=== PATIENT | male | born 1995 | race Caucasian/White ===

== ENCOUNTER 2022-03-07 18:47 | Inpatient (IN) | payer MEDICARE, OTHER ==
[~2022-03-07 18:47] MED LIST: LACTATED RINGERS 1,000 ML IV ONE
--- NOTE | 2022-03-07 20:21 | XR ---
EXAMINATION TYPE: XR KUB DATE OF EXAM: 03/07/2022 COMPARISON: NONE HISTORY: Right lower quadrant pain TECHNIQUE: 2 view FINDINGS: There is no sign of intestinal obstruction or pneumoperitoneum. Fecal pattern is normal. Madina ng bases are clear. No calcifications seen over the kidneys. There is a 12 mm calcification over the pelvis on the right side that could be large appendicolith. IMPRESSION: Possible large appendicolith. Nonacute bowel gas pattern.
[2022-03-07 20:24] LABS: Appearance,Urine Clear (Clear); Bilirubin,Urine Negative (Negative); Blood,Urine Negative (Negative); Color,Urine Yellow; Glucose,Urine (UA) Negative (Negative); Ketones,Urine 2+ (Negative); Leukocyte Esterase,Urine Negative (Negative); Nitrite,Urine Negative (Negative); Protein,Urine Trace (Negative); Specific Gravity,Urine 1.013 (1.001-1.035); Urobilinogen,Urine <2.0 mg/dL (<2.0)
[2022-03-07 20:30] LABS: Basophils # (A) 0.1 k/uL (0-0.2); Basophils % (A) 0 %; Eosinophils # (A) 0.1 k/uL (0-0.7); Eosinophils % (A) 0 %; HCT 40.8 % (39.0-53.0); HGB 14.4 gm/dL (13.0-17.5); Lymphocytes # (A) 1.3 k/uL (1.0-4.8); Lymphocytes % (A) 5 %; MCHC 35.3 g/dL (31.0-37.0); MCV 79.4 fL (80.0-100.0); Mean Platelet Volume 8.3; Monocytes # (A) 0.9 k/uL (0-1.0); Monocytes % (A) 4 %; Neutrophils # (A) 22.5 k/uL (1.3-7.7); Neutrophils % (A) 90 %; Platelet Count 155 k/uL (150-450); RBC 5.14 m/uL (4.30-5.90); RDW 12.8 % (11.5-15.5)
[2022-03-07 20:36] LABS: ALT 19 U/L (4-49); AST 17 U/L (17-59); African American GFR (CKD) >90 (>60 ml/min/1.73 sqM); Albumin 4.8 g/dL (3.5-5.0); Alkaline Phosphatase 75 U/L (38-126); Amylase 44 U/L (30-110); Anion Gap 14 mmol/L; Blood Urea Nitrogen 9 mg/dL (9-20); Calcium 9.5 mg/dL (8.4-10.2); Carbon Dioxide 22 mmol/L (22-30); Chloride 101 mmol/L (98-107); Glucose 111 mg/dL (74-99); Lipase 42 U/L (23-300); Non-African American GFR(CKD) >90 (>60 ml/min/1.73 sqM); Sodium 137 mmol/L (137-145); Total Bilirubin 2.6 mg/dL (0.2-1.3); Total Protein 7.6 g/dL (6.3-8.2)
[2022-03-07] MEDS ORDERED: PIPERACILLIN-TAZOBACTAM 3.375 GM in SODIUM CHLORIDE 0.9% 100 ML IVPB STA (21:28)
[2022-03-07] MEDS ORDERED: ONDANSETRON 4 MG/2 ML VIAL IVP STA (21:28)
[2022-03-07] MEDS ORDERED: MORPHINE SULFATE 4 MG/ML SYRINGE IVP STA (21:28)
--- NOTE | 2022-03-07 21:38 | CT ---
EXAMINATION TYPE: CT abdomen pelvis w con DATE OF EXAM: 03/07/2022 COMPARISON: None HISTORY: lower abdominal pain and vomiting CT DLP: 1026.3 mGycm Automated exposure control for dose reduction was used. CONTRAST: Performed with IV Contrast, patient injected with 100 mL of Isovue 300. Images obtained from the diaphragm to the floor the pelvis with the IV contrast. The lung bases are clear. No pleural effusion. Heart size is normal. No pericardial effusion. Liver spleen pancreas stomach gallbladder appear intact. The bile duct are nondilated. There is no adrenal mass. Kidneys show satisfactory contrast opacification. No hydronephrosis. Ureter s are not dilated. There are multiple mildly dilated loops of small bowel in the pelvis. There are fluid levels. Small b owel measures up to 3 cm. The appendix is dilated and posterior. Appendix measures up to 2.2 cm with large 12 mm appendicolith close to the cecum. There is also a small appendicolith at the tip of the a ppendix. There is some mild fat stranding around the appendix. The lumbar vertebrae have normal alignment. No compression fracture. Posterior element are intact. [place] pelvis is intact. The hip joints are intact. IMPRESSION: Markedly dilated appendix with appendicoliths. Mild free fluid and consistent with acute appendicitis . Rupture is possible. Mildly dilated loops of small bowel in the pelvis likely related to ileus.
[2022-03-07] MEDS ORDERED: SODIUM CHLORIDE 0.9% 1,000 ML IV STA (21:45)
--- NOTE | 2022-03-07 21:49 | ED ---
Abdominal Pain HPI - General Chief Complaint: Abdominal Pain Stated Complaint: lower abd pain, fever, vomiting Time Seen by Provider: 03/07/22 20:47 Source: patient Mode of arrival: ambulatory Limitations: no limitations - History of Present Illness Initial Comments: Patient is a 26-year-old otherwise healthy male who presents to the emergency department with a chief complaint of abdominal pain. Patient states the pain started yesterday night around the belly button and over time has progressed to his right lower abdomen. Describes pain as a severe aching. Reports consistent nausea and vomiting with inability to tolerate food and liquid. Reports fever and chills. Denies burning with urination, blood in urine, diarrhea, blood in stool. Denies history of abdominal surgery. - Related Data Allergies Allergy/AdvReac Type Severity Reaction Status Date / Time No Known Allergies Allergy Verified 03/07/22 19:57 Review of Systems ROS Statement: Those systems with pertinent positive or pertinent negative responses have been documented in the HPI. ROS Other: All systems not noted in ROS Statement are negative. Past Medical History Past Medical History: No Reported History History of Any Multi-Drug Resistant Organisms: None Reported Past Surgical History: No Surgical Hx Reported Past Psychological History: No Psychological Hx Reported Smoking Status: Never smoker Past Alcohol Use History: None Reported Past Drug Use History: None Reported General Exam Limitations: no limitations General appearance: alert, in distress (pain ) Respiratory exam: Present: normal lung sounds bilaterally. Absent: respiratory distress, wheezes, rales, rhonchi, stridor Cardiovascular Exam: Present: regular rate, normal rhythm, normal heart sounds. Absent: systolic murmur, diastolic murmur, rubs, gallop, clicks GI/Abdominal exam: Present: soft, tenderness, normal bowel sounds. Absent: distended, guarding, rebound (significant in RLQ and to a lesser extent, LLQ. positive mcburney, positive rovsing), rigid Neurological exam: Present: alert, oriented X3, CN II-XII intact Psychiatric exam: Present: normal affect, normal mood Skin exam: Present: warm, dry, intact, normal color. Absent: rash Course Vital Signs 03/07/22 19:55 Temperature 99.4 F Pulse Rate 109 H Respiratory 20 Rate Blood Pressure 128/84 O2 Sat by Pulse 96 Oximetry Medical Decision Making - Medical Decision Making This is a 26-year-old presenting with abdominal pain. Patient febrile at 101.5F. Based on presentation and physical exam there is high suspicion for appendicitis. Patient very tender on abdominal exam without rigidity or guar ding. Laboratory studies obtained. There is leukocytosis with left shift at 25.[address] of the abdomen and pelvis with contrast shows a markedly dilated appendix with appendicoliths. There is mild free fluid and consistent with acute appendicitis. Rupture is possible. There are mildly dilated loops of small bowel in the pelvis likely related to ileus. Patient given morphine, Zofran, Rocephin, Flagyl, ofirmev, IV fluids. Case discussed with Dr. Mcclellan who accepts admission. Patient NPO and admitted in stable medical condition. Dr. Person is my attending . - Lab Data Result diagrams: 03/07/22 20:00 03/07/22 20:00 Lab Results 03/07/22 03/07/22 03/07/22 Range/Units 20:00 20:00 20:07 WBC 25.0 H (3.8-10.6) k/uL RBC 5.14 (4.30-5.90) m/uL Hgb 14.4 (13.0-17.5) gm/dL Hct 40.8 (39.0-53.0) % MCV 79.4 L (80.0-100.0) fL MCH 28.0 (25.0-35.0) pg MCHC 35.3 (31.0-37.0) g/dL RDW 12.8 (11.5-15.5) % Plt Count 155 (150-450) k/uL MPV 8.3 Neutrophils % 90 % Lymphocytes % 5 % Monocytes % 4 % Eosinophils % 0 % Basophils % 0 % Neutrophils # 22.5 H (1.3-7.7) k/uL Lymphocytes # 1.3 (1.0-4.8) k/uL Monocytes # 0.9 (0-1.0) k/uL Eosinophils # 0.1 (0-0.7) k/uL Basophils # 0.1 (0-0.2) k/uL Sodium 137 (137-145) mmol/L Potassium 4.0 (3.5-5.1) mmol/L Chloride 101 (98-107) mmol/L Carbon Dioxide 22 (22-30) mmol/L Anion Gap 14 mmol/L BUN 9 (9-20) mg/dL Creatinine 0.79 (0.66-1.25) mg/dL Est GFR (CKD-EPI)AfAm >90 (>60 ml/min/1.73 sqM) Est GFR (CKD-EPI)NonAf >90 (>60 ml/min/1.73 sqM) Glucose 111 H (74-99) mg/dL Calcium 9.5 (8.4-10.2) mg/dL Total Bilirubin 2.6 H (0.2-1.3) mg/dL AST 17 (17-59) U/L ALT 19 (4-49) U/L Alkaline Phosphatase 75 (38-126) U/L Total Protein 7.6 (6.3-8.2) g/dL Albumin 4.8 (3.5-5.0) g/dL Amylase 44 (30-110) U/L Lipase 42 (23-300) U/L Urine Color Yellow Urine Appearance Clear (Clear) Urine pH 6.0 (5.0-8.0) Ur Specific [place] 1.013 (1.001-1.035) Urine Protein Trace H (Negative) Urine Glucose (UA) Negative (Negative) Urine Ketones 2+ H (Negative) Urine Blood Negative (Negative) Urine Nitrite Negative (Negative) Urine Bilirubin Negative (Negative) Urine Urobilinogen <2.0 (<2.0) mg/dL Ur Leukocyte Esterase Negative (Negative) Disposition Clinical Impression: RLQ abdominal pain, Nausea and vomiting, Appendicitis, Fever Disposition: ADMITTED IP TO THIS [facility] Condition: Fair Referrals: Nonstaff,Physician [Primary Care Provider] - 1-2 days Decision Time: 22:01
[2022-03-07] MEDS ORDERED: metroNIDAZOLE-NS PMX 500 MG in SALINE 1 100ML.BAG IVPB STA (21:51)
[2022-03-07] MEDS ORDERED: ACETAMINOPHEN IV (For NPO) 1,000 MG in EMPTY BAG 1 BAG IVPB ONE (22:00)
[2022-03-07] MEDS ORDERED: ONDANSETRON 4 MG/2 ML VIAL IVP PRN ×2 (22:02→22:45)
[2022-03-07] MEDS ORDERED: HYDROmorphone 1 MG/ML 1 ML SYRINGE IVP PRN (22:02)
[2022-03-07] MEDS ORDERED: NALOXONE 0.4 MG/ML 1 ML VIAL IV PRN ×2 (22:02→22:45)
[2022-03-07] MEDS: SODIUM CHLORIDE 0.9% 1,000 ML IV SCH (22:17)
--- NOTE | 2022-03-07 22:30 | P.GSHP ---
History of Present Illness H&P Date: 03/07/22 Chief Complaint: Abdominal pain, nausea and fever Patient is a 26-year-old young man who presents to [facility] emergency department the evening of 03/07/2022 with chief complaint of less than 24 hours of progressive abdominal pain that started at the periumbilical position and came to rest in the right lower quadrant. He admits to associated subjective fevers, nausea and multiple bouts of nonbloody emesis. He hasn't had similar issues in the past. No known personal history of inflammatory bowel disease, no known personal history of endoscopy, no previous abdominal surgery. He denies any medical problems of significance. Laboratory studies on presentation were significant for a leukocytosis over 20,000. Computed tomography scan of the abdomen and pelvis shows a markedly enlarged and elongated appendix with at least 2 fecaliths, some modest inflammatory changes and a small amount of free fluid in the pelvis. Images were interpreted as suspect for appendicitis with rupture. There is no organized abscess, no free air. Pain is improved a bit since presentation with administration of pain medications. - Review of Systems All systems: negative - Constitutional Constitutional: Reports as per HPI, Reports anorexia, Reports fever Past Medical History Past Medical History: No Reported History History of Any Multi-Drug Resistant Organisms: None Reported Past Surgical History: No Surgical Hx Reported Past Psychological History: No Psychological Hx Reported Smoking Status: Never smoker Past Alcohol Use History: None Reported Past Drug Use History: None Reported Medications and Allergies Home Medications Medication Instructions Recorded Confirmed Type No Known Home Medications 03/07/22 03/07/22 History Allergies Allergy/AdvReac Type Severity Reaction Status Date / Time No Known Allergies Allergy Verified 03/07/22 22:06 Surgical - Exam Osteopathic Statement: *. No significant issues noted on an osteopathic structural exam other than those noted in the History and Physical/Consult. Vital Signs Temp Pulse Resp BP Pulse Ox 99.4 F 109 H 20 128/84 96 03/07/22 19:55 03/07/22 19:55 03/07/22 19:55 03/07/22 19:55 03/07/22 19:55 - General well developed, well nourished, no distress, moderate pain - Eyes PERRL, normal ocular movement - ENT normal pinna, normal nares, normal mucosa, no hearing loss, no congestion - Neck trachea midline, no lymphadectomy, no venous distension - Respiratory normal expansion, normal respiratory effort, clear to auscultation - Cardiovascular Rhythm: regular - Abdomen Abdomen is diffusely tender with more focal tenderness over McBurney's point, there is guarding and rebound present over the right lower quadrant, Rovsing sign is present, psoas sign is present on the right. - Integumentary no abnormal pigmentation - Neurologic normal coordination, normal sensation - Psychiatric oriented to time, oriented to person, oriented to place, speech is normal, memory intact Results - Labs 03/07/22 20:00 03/07/22 20:00 Abnormal Lab Results - Last 24 Hours (Table) 03/07/22 03/07/22 03/07/22 Range/Units 20:00 20:00 20:07 WBC 25.0 H (3.8-10.6) k/uL MCV 79.4 L (80.0-100.0) fL Neutrophils # 22.5 H (1.3-7.7) k/uL Glucose 111 H (74-99) mg/dL Total Bilirubin 2.6 H (0.2-1.3) mg/dL Urine Protein Trace H (Negative) Urine Ketones 2+ H (Negative) Diabetes panel 03/07/22 Range/Units 20:00 Sodium 137 (137-145) mmol/L Potassium 4.0 (3.5-5.1) mmol/L Chloride 101 (98-107) mmol/L Carbon Dioxide 22 (22-30) mmol/L BUN 9 (9-20) mg/dL Creatinine 0.79 (0.66-1.25) mg/dL Glucose 111 H (74-99) mg/dL Calcium 9.5 (8.4-10.2) mg/dL AST 17 (17-59) U/L ALT 19 (4-49) U/L Alkaline Phosphatase 75 (38-126) U/L Total Protein 7.6 (6.3-8.2) g/dL Albumin 4.8 (3.5-5.0) g/dL Calcium panel 03/07/22 Range/Units 20:00 Calcium 9.5 (8.4-10.2) mg/dL Albumin 4.8 (3.5-5.0) g/dL Pituitary panel 03/07/22 Range/Units 20:00 Sodium 137 (137-145) mmol/L Potassium 4.0 (3.5-5.1) mmol/L Chloride 101 (98-107) mmol/L Carbon Dioxide 22 (22-30) mmol/L BUN 9 (9-20) mg/dL Creatinine 0.79 (0.66-1.25) mg/dL Glucose 111 H (74-99) mg/dL Calcium 9.5 (8.4-10.2) mg/dL Adrenal panel 03/07/22 Range/Units 20:00 Sodium 137 (137-145) mmol/L Potassium 4.0 (3.5-5.1) mmol/L Chloride 101 (98-107) mmol/L Carbon Dioxide 22 (22-30) mmol/L BUN 9 (9-20) mg/dL Creatinine 0.79 (0.66-1.25) mg/dL Glucose 111 H (74-99) mg/dL Calcium 9.5 (8.4-10.2) mg/dL Total Bilirubin 2.6 H (0.2-1.3) mg/dL AST 17 (17-59) U/L ALT 19 (4-49) U/L Alkaline Phosphatase 75 (38-126) U/L Total Protein 7.6 (6.3-8.2) g/dL Albumin 4.8 (3.5-5.0) g/dL - Imaging CT scan - abdomen: report reviewed, image reviewed CT scan - pelvis: report reviewed, image reviewed Assessment and Plan Assessment: 26-year-old young man with clinical history, physical exam, computed tomography scan imaging, and laboratory studies all suspect for acute appendicitis with fecalith, possible underlying rupture given free fluid and pronounced leukocytosis. Associated tachycardia, normotensive for now. Possible und erlying bacteremia. No known personal history of inflammatory bowel disease. Plan: Options for treatment were discussed with the patient. He like to move forward with laparoscopic, possible open appendectomy to be performed this evening without further delay. If there is rupture will anticipate leaving a drain in place. If there is no evidence of rupture or abscess he may be ready for discharge as early as tomorrow morning. If there is evidence of rupture or abscess formation will anticipate him staying at the Hospital through the weekend at least. He'll receive appropriate broad-spectrum antibiotic coverage preoperatively and will be admitted to my care. Time with Patient: Greater than 30
[2022-03-07] MEDS ORDERED: MORPHINE SULFATE 4 MG/ML SYRINGE IVP PRN (22:45)
[2022-03-07] MEDS ORDERED: BUPIVACAINE (PF) 0.25% 30 ML VIAL SQ ONE (23:05)
[2022-03-07] MEDS ORDERED: BACITRACIN OINT 1 EACH PACKET TOPICAL ONE (23:30)
--- NOTE | 2022-03-08 00:41 | P.OP ---
Date of Procedure: 03/08/22 Preoperative Diagnosis: Acute appendicitis Postoperative Diagnosis: Acute appendicitis with diffuse peritonitis, gangrene and rupture Procedure(s) Performed: Laparoscopic appendectomy and drain placement Anesthesia: CHIKIS Surgeon: Reji Mcclellan Estimated Blood Loss (ml): 5 Pathology: other (Appendix, intra-abdominal fluid for Gram stain and culture) Condition: stable Disposition: PACU Indications for Procedure: Patient is a 26-year-old young man who presents to [facility] emergency department the evening of 03/07/2022 with chief complaint of around 24 hours of progressive abdominal pain that started the periumbilical position and came to rest in the right lower quadrant along with nausea, fever and anorexia. He has no known personal history of inflammatory bowel disease. Laboratory studies disclosed a leukocytosis over 20,000. Computed tomography scan of the abdomen and pelvis showed findings consistent with acute appendicitis with fecalith and a small amount of free fluid in the pelvis suspicious of rupture. Physical exam revealed diffuse peritonitis. Options for treatment were discussed, he wished to move forward with surgery and give informed consent for the same after discussion of risks, benefit and alternatives to treatment. He received appropriate broad spectrum antibiotics preoperatively. He was taken directly from the emergency department to the operating room for definitive treatment. Operative Findings: As above Description of Procedure: Patient was taken the operative suite and placed in supine position. Following induction of general endotracheal anesthesia he was prepped and draped in sterile fashion. Optical entry a palmers point was not feasible given the patient's exceptionally thin build and a rather narrow rectus sheath. As such a transverse incision was made over palmers point after local anesthesia field block and dissection carried out related to the anterior sheath bluntly and rectus splitting incision made and an 11 mm trocar passed into the abdominal cavity under direct visualization. Abdomen was insufflated and surveyed. No apparent injury or bleeding were noted. There was a moderate amount of slightly hemorrhagic and purulent free fluid in the lower abdomen. There was a associated diffuse peritonitis over the parietal and visceral surfaces. A 5 mm port was placed at the umbilical and suprapubic positions under laparoscopic guidance. Cecum and appendiceal base and terminal ileum were readily identified. The appendix seemed is slightly retrocecal, a window at the base of the appendix at its junction with the cecum was created bluntly and appendix divided at the confluence with Endo CONCEPCION tri-staple [place] load. Mesoappendix and appendiceal artery were taken down with LigaSure following the appendix posteriorly revealing a central area of gangrene and perforation. Appendix was retrieved with the Endo Catch bag through the 11 mm trocar site, fascia didn't require some dilation for delivery. Staple line was intact, hemostasis excellent. The purulent free fluid from the pelvis was aspirated and submitted for culture and Gram stain. Abdomen was irrigated and fully aspirated. A 19- Alban[place] Fuad drain was directed through the suprapubic port site with coverage over the pelvis and right paracolic gutter. Fascia at the 11 mm trocar site was closed with 0 Vicryl tie and Juanpablo-Pato suture passer in [id number] fa shion. Fascia at the umbilical port site was closed with 0 Vicryl suture, and open technique as the fascia was easily visible given the patient's rather thin build. Following desufflation removing all ports skin incisions were closed with skin stapler drain was secured with 0 silk and trimmed to length. Connected to suction. Sterile dressings and bacitracin were placed over incisions and patient transferred to the postanesthesia care unit in stable condition. Given presence of diffuse peritonitis and rupture I anticipate she'll beneath in the hospital at least through the weekend. He may have issues with protracted ileus.
[2022-03-08] MEDS: HEPARIN SODIUM,PORCINE/PF 5,000 UNIT/0.5 ML SYRINGE SQ SCH ×5 (00:48→23:50)
[2022-03-08] MEDS: LACTATED RINGERS 1,000 ML IV SCH ×2 (01:06→05:29)
[2022-03-08 04:27] LABS: Basophils % (A) 0 %; Eosinophils # (A) 0.1 k/uL (0-0.7); Eosinophils % (A) 0 %; HCT 37.1 % (39.0-53.0); HGB 13.1 gm/dL (13.0-17.5); Lymphocytes # (A) 0.4 k/uL (1.0-4.8); Lymphocytes % (A) 2 %; MCH 28.7 pg (25.0-35.0); MCHC 35.2 g/dL (31.0-37.0); MCV 81.5 fL (80.0-100.0); Mean Platelet Volume 8.1; Monocytes # (A) 0.5 k/uL (0-1.0); Monocytes % (A) 3 %; Neutrophils # (A) 14.9 k/uL (1.3-7.7); Neutrophils % (A) 94 %; Platelet Count 127 k/uL (150-450); RBC 4.55 m/uL (4.30-5.90); RDW 12.7 % (11.5-15.5); WBC 15.9 k/uL (3.8-10.6)
[2022-03-08] MEDS: metroNIDAZOLE-NS PMX 500 MG in SALINE 1 100ML.BAG IVPB SCH ×3 (05:29→21:26)
[2022-03-08] MEDS ORDERED: cefTRIAXone IN SWFI 1,000 MG/10 ML SYRINGE IVP SCH (09:00)
[2022-03-08 09:05] LABS: African American GFR (CKD) 138.1 (60.0-200.0); Albumin 3.7 g/dL (3.8-4.9); Albumin/Globulin Ratio 1.95 (1.60-3.17); Anion Gap 11.4 mmol/L (10.00-18.00); BUN/Creat Ratio 11.22 Ratio (12.00-20.00); Blood Urea Nitrogen 10.1 mg/dL (9.0-27.0); Calcium 8.6 mg/dL (8.7-10.3); Carbon Dioxide 20.6 mmol/L (20.0-27.5); Globulin 1.9 g/dL (1.6-3.3); Non-African American GFR(CKD) 119.1 (60.0-200.0); Potassium 4.3 mmol/L (3.5-5.5); Total Bilirubin 1.1 mg/dL (0.30-1.20); Total Protein 5.6 g/dL (6.2-8.2)
--- NOTE | 2022-03-08 12:15 | P.PN ---
Subjective Progress Note Date: 03/08/22 Principal diagnosis: Acute appendicitis Patient seen and examined at bedside. Pain improved compared to prior to surgery. Admits to some incisional pains with movement and position changes. Some discomfort associated with his intra-abdominal drain. Tolerating scant clear liquids but appetite remains poor. Voiding with some issues with hesitancy. He's had a hemodynamically stable and afebrile appearance overnight. Laboratory studies show downtrend and leukocytosis. Slightly low platelet count. Gram stain and cultures from intra-abdominal fluid are still pending. Presently on Rocephin and Flagyl for broad-spectrum coverage. Objective - Vital Signs Vital signs: Vital Signs Temp 98 F 03/08/22 07:00 Pulse 75 03/08/22 07:00 Resp 14 03/08/22 07:00 BP 104/60 03/08/22 07:00 Pulse Ox 96 03/08/22 07:00 FiO2 Intake & Output 03/07/22 03/08/22 03/08/22 18:59 06:59 18:59 Intake Total 800 750 360 Output Total 160 Balance 800 590 360 Weight 61.689 kg Intake: IV 800 250 Intake, IV Titration 500 Amount ACETAMINOPHEN IV (For NPO 400 ) 1,000 mg In Empty Bag 1 bag @ 400 mls/hr IVPB ONCE ONE Rx#:[id number] metroNIDAZOLE-NS PMX 500 100 mg In Saline 1 100ml.bag @ 100 mls/hr IVPB Q8H [facility] Rx#:[id number] Oral 360 Output: Drainage 80 Left Lower Abdomen 80 Other 80 - Constitutional General appearance: Present: average body habitus, no acute distress - EENT Eyes: Present: PERRLA ENT: Present: hearing grossly normal, NA/AT - Respiratory Respiratory: bilateral: CTA - Cardiovascular Rhythm: regular - Gastrointestinal Gastrointestinal Comment(s): Abdomen is soft, mild right lower quadrant and incisional tenderness to palpation, no guarding rebound or distention. Abdominal drain is in place with seropurulent aspirate. Exam improved compared to yesterday. - Neurologic Neurologic: Present: CNII-XII intact - Psychiatric Psychiatric: Present: A&O x's 3, appropriate affect, intact judgment & insight - Labs CBC & Chem 7: 03/08/22 04:00 03/08/22 04:00 Labs: Abnormal Lab Results - Last 24 Hours (Table) 03/07/22 03/07/22 03/07/22 Range/Units 20:00 20:00 20:07 WBC 25.0 H (3.8-10.6) k/uL Hct (39.0-53.0) % MCV 79.4 L (80.0-100.0) fL Plt Count (150-450) k/uL Neutrophils # 22.5 H (1.3-7.7) k/uL Lymphocytes # (1.0-4.8) k/uL BUN/Creatinine Ratio (12.00-20.00) Ratio Glucose 111 H (74-99) mg/dL Calcium (8.7-10.3) mg/dL Total Bilirubin 2.6 H (0.2-1.3) mg/dL AST (14-35) U/L Total Protein (6.2-8.2) g/dL Albumin (3.8-4.9) g/dL Urine Protein Trace H (Negative) Urine Ketones 2+ H (Negative) 03/08/22 03/08/22 Range/Units 04:00 04:00 WBC 15.9 H (3.8-10.6) k/uL Hct 37.1 L (39.0-53.0) % MCV (80.0-100.0) fL Plt Count 127 L (150-450) k/uL Neutrophils # 14.9 H (1.3-7.7) k/uL Lymphocytes # 0.4 L (1.0-4.8) k/uL BUN/Creatinine Ratio 11.22 L (12.00-20.00) Ratio Glucose 139 H (74-99) mg/dL Calcium 8.6 L (8.7-10.3) mg/dL Total Bilirubin (0.2-1.3) mg/dL AST 6 L (14-35) U/L Total Protein 5.6 L (6.2-8.2) g/dL Albumin 3.7 L (3.8-4.9) g/dL Urine Protein (Negative) Urine Ketones (Negative) Microbiology - Last 24 Hours (Table) 03/08/22 00:05 Body Fluid Culture - Preliminary Peritoneal Fluid 03/08/22 00:05 Anaerobic Culture - Preliminary Abdominal Fluid Assessment and Plan Assessment: Postoperative day 0 laparoscopic appendectomy with washout and drain placement for acute appendicitis with gangrene and perforation. No evidence of sepsis. Plan: Continue with IV fluids at present rate for now, clear liquids as tolerated for now. Anticipate a degree of ileus. Incentive spirometry around the clock while awake, ambulate 3 times daily and when necessary. Rocephin and Flagyl for broad-spectrum coverage, awaiting preliminary Gram stain and culture results. I expect him to be in the hospital through the weekend at least. Time with Patient: Greater than 30
[2022-03-08] MEDS: KETOROLAC 15 MG/ML 1 ML VIAL IVP PRN ×2 (14:07→23:50)
[2022-03-08] MEDS: SODIUM CHLORIDE 0.9% 1,000 ML IV SCH ×2 (14:09→21:26)
--- NOTE | 2022-03-08 20:05 | P.CONS ---
History of Present Illness - Reason for Consult Consult date: 03/08/22 Medical management - Chief Complaint Acute appendicitis - History of Present Illness Patient is a 26-year-old male without significant past medical history presents to ER with complaints of abdominal pain started on 03/23/2022. Pain initially at the umbilicus region and progressed to right lower quadrant of the abdomen. Associate with nausea and vomiting and unable to tolerate oral diet. No recent illnesses. No fever no chills. No diarrhea. Presented to ER due to worsening symptoms. No complaints of chest pain or shortness of breath. No cough or sputum production. CT of the abdomen pelvis showed markedly dilated appendix with appendicoliths. Mild free fluid and consistent with acute appendicitis. Rupture is possible. Mildly dilated loops of small bowel in the pelvis likely due to ileus. KUB x-ray showed possible large appendicolith. No acute bowel gas pattern. Laboratory data showed WBC 25.0 hemoglobin 14.4 and platelets 155 BUN 9 creatinine 0.79, blood sugar is 111 and total bilirubin level was 2.6 Liver enzymes are not elevated Lipase 42 Urinalysis showed 2+ ketones. No evidence of infection. Patient was seen by General surgery and was taken to the OR last night. Status post laparoscopic appendectomy and drain placement. Patient was found to have acute appendicitis with diffuse peritonitis, gangrene and rupture. Review of Systems Constitutional: Patient denies any fever or chills . no Generalized weakness. Abdomen: Patient was complaining of abdominal pain associated nausea and vomiting. No diarrhea. Right lower quadrant abdominal pain Cardiovascular: Patient denies any chest pain or short of breath no palpitations. Respiratory: patient denied any cough . no sputum production. No shortness of breath Neurologic: Patient denied any numbness or tingling headache. Musculoskeletal: Patient denies any complaints of joint swelling or deformity. Skin: Negative Psychiatric: Negative Endocrine: No heat or cold intolerance. No recent weight gain. Genitourinary: No dysuria or hematuria. All other 14 point ROS negative except the above Past Medical History Past Medical History: No Reported History Additional Past Medical History / Comment(s): autism/aspergers syndrome History of Any Multi-Drug Resistant Organisms: None Reported Past Surgical History: No Surgical Hx Reported Past Anesthesia/Blood Transfusion Reactions: No Reported Reaction Past Psychological History: No Psychological Hx Reported Smoking Status: Never smoker Past Alcohol Use History: None Reported Past Drug Use History: None Reported Medications and Allergies Home Medications Medication Instructions Recorded Confirmed Type No Known Home Medications 03/07/22 03/07/22 History Allergies Allergy/AdvReac Type Severity Reaction Status Date / Time No Known Allergies Allergy Verified 03/07/22 22:06 Physical Exam Vitals: Vital Signs Temp Pulse Pulse Pulse Resp BP BP 03/08/22 07:00 98 F 75 14 03/08/22 05:10 71 14 03/08/22 04:10 74 14 03/08/22 03:10 74 14 03/08/22 02:40 82 14 03/08/22 02:10 86 14 03/08/22 01:55 87 14 03/08/22 01:40 85 14 03/08/22 01:25 97.9 F 91 14 03/08/22 01:13 99 16 109/71 03/08/22 01:00 86 16 101/58 03/08/22 00:45 86 16 105/56 03/08/22 00:30 100.8 F H 88 16 103/59 03/07/22 19:55 99.4 F 109 H 20 128/84 BP Pulse Ox 03/08/22 07:00 104/60 96 03/08/22 05:10 106/65 97 03/08/22 04:10 105/63 97 03/08/22 03:10 111/66 96 03/08/22 02:40 107/61 97 03/08/22 02:10 111/65 97 03/08/22 01:55 114/68 95 03/08/22 01:40 116/70 97 03/08/22 01:25 119/70 96 03/08/22 01:13 97 03/08/22 01:00 96 03/08/22 00:45 96 03/08/22 00:30 99 03/07/22 19:55 96 Intake and Output 03/07/22 03/08/22 03/08/22 22:59 06:59 14:59 Intake Total 750 360 Output Total 160 Balance 590 360 Intake: IV 250 Intake, IV Titration 500 Amount ACETAMINOPHEN IV (For NPO 400 ) 1,000 mg In Empty Bag 1 bag @ 400 mls/hr IVPB ONCE ONE Rx#:[id number] metroNIDAZOLE-NS PMX 500 100 mg In Saline 1 100ml.bag @ 100 mls/hr IVPB Q8H [facility] Rx#:[id number] Oral 360 Output: Drainage 80 Left Lower Abdomen 80 Other 80 Other: Weight 61.689 kg 61.689 kg PHYSICAL EXAMINATION: Patient is lying in the bed comfortably, no acute distress, awake alert and oriented.. HEENT: Normocephalic. Neck is supple. Pupils reactive. Nostrils clear. Oral cavity is moist. Neck reveals no JVD, carotid bruits, or thyromegaly. CHEST EXAMINATION: Trachea is central. Symmetrical expansion. Lung marroquin clear to auscultation and percussion. CARDIAC: Normal S1, S2 with no gallops. No murmurs ABDOMEN: Soft. Bowel sounds sluggish. Tenderness of the surgical incision sites.. No organomegaly. No abdominal bruits. Extremities: reveal no edema. No clubbing or cyanosis Neurologically awake, alert, oriented x3 with well-coordinated movements. No focal deficits noted Skin: No rash or skin lesions. Psychiatric: Coperative. Nonsuicidal, Musculoskeletal: No joint swelling or deformity. Normal range of motion. Results CBC & Chem 7: 03/08/22 04:00 03/08/22 04:00 Labs: Abnormal Lab Results - Last 24 Hours (Table) 03/07/22 03/07/22 03/07/22 Range/Units 20:00 20:00 20:07 WBC 25.0 H (3.8-10.6) k/uL Hct (39.0-53.0) % MCV 79.4 L (80.0-100.0) fL Plt Count (150-450) k/uL Neutrophils # 22.5 H (1.3-7.7) k/uL Lymphocytes # (1.0-4.8) k/uL BUN/Creatinine Ratio (12.00-20.00) Ratio Glucose 111 H (74-99) mg/dL Calcium (8.7-10.3) mg/dL Total Bilirubin 2.6 H (0.2-1.3) mg/dL AST (14-35) U/L Total Protein (6.2-8.2) g/dL Albumin (3.8-4.9) g/dL Urine Protein Trace H (Negative) Urine Ketones 2+ H (Negative) 03/08/22 03/08/22 Range/Units 04:00 04:00 WBC 15.9 H (3.8-10.6) k/uL Hct 37.1 L (39.0-53.0) % MCV (80.0-100.0) fL Plt Count 127 L (150-450) k/uL Neutrophils # 14.9 H (1.3-7.7) k/uL Lymphocytes # 0.4 L (1.0-4.8) k/uL BUN/Creatinine Ratio 11.22 L (12.00-20.00) Ratio Glucose 139 H (74-99) mg/dL Calcium 8.6 L (8.7-10.3) mg/dL Total Bilirubin (0.2-1.3) mg/dL AST 6 L (14-35) U/L Total Protein 5.6 L (6.2-8.2) g/dL Albumin 3.7 L (3.8-4.9) g/dL Urine Protein (Negative) Urine Ketones (Negative) Microbiology - Last 24 Hours (Table) 03/08/22 00:05 Body Fluid Culture - Preliminary Peritoneal Fluid 03/08/22 00:05 Anaerobic Culture - Preliminary Abdominal Fluid Assessment and Plan Assessment: Acute gangrenous appendicitis with ruptured and diffuse peritonitis. Status post laparoscopic appendectomy. Postoperative day 0 Sepsis secondary to diffuse peritonitis and gangrenous appendix Ileus GI and DVT prophylaxis patient is currently on heparin subcu Plan: Patient will be continued on IV hydration will be continued on IV hydration and broad-spectrum antibiotics ceftriaxone and Flagyl. Follow-up peritoneal fluid culture report. Continue with incentive spirometry and pain management and bowel regimen. Will follow closely and further recommendations based on the clinical course. Thank you for your consult. Time with Patient: Greater than 30
[2022-03-09] MEDS ORDERED: PROCHLORPERAZINE INJ 10 MG/2 ML VIAL IVP PRN (05:06)
[2022-03-09] MEDS: metroNIDAZOLE-NS PMX 500 MG in SALINE 1 100ML.BAG IVPB SCH (05:09)
[2022-03-09] MEDS ORDERED: SCOPOLAMINE 1 MG/72 HR PATCH TRANSDERM PRN (05:30)
[2022-03-09 08:59] LABS: Basophils # (A) 0.03 X 10*3/uL (0.00-0.10); Basophils % (A) 0.2 %; Eosinophils # (A) 0.04 X 10*3/uL (0.04-0.35); Eosinophils % (A) 0.3 %; HCT 36.3 % (39.6-50.0); HGB 12.2 g/dL (13.0-17.0); Immature Grans, Automated 0.3 %; Lymphocytes # (A) 0.77 X 10*3/uL (0.90-5.00); Lymphocytes % (A) 6.2 %; MCH 27.5 pg (27.0-32.0); MCHC 33.6 g/dL (32.0-37.0); MCV 81.9 fL (80.0-97.0); Mean Platelet Volume 11.8 fL (9.5-12.2); Monocytes # (A) 0.85 X 10*3/uL (0.20-1.00); Monocytes % (A) 6.8 %; NRBC Per 100 WBC 0 /100 WBCS (0.0-0.0); Neutrophils # (A) 10.69 X 10*3/uL (1.80-7.70); Neutrophils % (A) 86.2 %; Platelet Count 147 X 10*3/uL (140-440); RBC 4.43 X 10*6/uL (4.40-5.60); RDW 13.2 % (11.5-14.5); WBC 12.42 X 10*3/uL (4.50-10.00)
[2022-03-09] MEDS: HEPARIN SODIUM,PORCINE/PF 5,000 UNIT/0.5 ML SYRINGE SQ SCH ×3 (09:00→22:59)
[2022-03-09 09:10] LABS: Albumin 3.5 g/dL (3.8-4.9); Albumin/Globulin Ratio 1.86 (1.60-3.17); Anion Gap 9.4 mmol/L (10.00-18.00); BUN/Creat Ratio 8.37 Ratio (12.00-20.00); Blood Urea Nitrogen 6.4 mg/dL (9.0-27.0); Calcium 8.4 mg/dL (8.7-10.3); Carbon Dioxide 22.3 mmol/L (20.0-27.5); Globulin 1.9 g/dL (1.6-3.3); Non-African American GFR(CKD) 127.7 (60.0-200.0); Potassium 3.7 mmol/L (3.5-5.5); Total Bilirubin 0.6 mg/dL (0.30-1.20); Total Protein 5.4 g/dL (6.2-8.2)
[2022-03-09] MEDS: SODIUM CHLORIDE 0.9% 1,000 ML IV SCH (10:25)
--- NOTE | 2022-03-09 13:16 | P.PN ---
Subjective Progress Note Date: 03/09/22 Principal diagnosis: Acute appendicitis Patient seen and examined at bedside. Had some issues with nausea and a few bouts of emesis overnight. Added Compazine and scopolamine patch to Zofran when necessary Started to pass gas today, he's a bit more comfortable now. He's been tolerating clear liquids on and off into this afternoon. No reported fever or chills. Voiding is improving. His abdominal drain is found with the bulb full of predominantly serous fluid, off suction. There have been complaints of leakage from around the drain site. This was emptied and placed back to suction. His intra-abdominal cultures have yielded evidence of Pseudomonas on preliminary report, speciation and sensitivities are pending. White blood cell count is trending down to 12.4, hemoglobin stable at 12.2, platelet count 147. Metabolic panel essentially normal and all counts. Glucose was slightly high at 129. He's had a hemodynamically stable and afebrile appearance overnight. Was ambulatory this morning, planning on a getting up and out of bed this afternoon. Objective - Vital Signs Vital signs: Vital Signs Temp 98 F 03/09/22 07:00 Pulse 85 03/09/22 07:00 Resp 14 03/09/22 07:00 BP 128/82 03/09/22 07:00 Pulse Ox 98 03/09/22 07:00 FiO2 Intake & Output 03/08/22 03/09/22 03/09/22 18:59 06:59 18:59 Intake Total 820 118 Output Total 50 72 70 Balance 770 -72 48 Intake: Oral 820 118 Output: Drainage 50 70 70 Left Lower Abdomen 50 70 70 Emesis 2 Other: Voiding Method Toilet # Voids 1 2 - Constitutional General appearance: Present: average body habitus, cooperative - EENT Eyes: Present: PERRLA ENT: Present: NA/AT - Respiratory Respiratory: bilateral: CTA - Gastrointestinal Gastrointestinal Comment(s): Abdomen is soft with improvement in diffuse tenderness to palpation. He has moderate incisional tenderness to palpation especially over the left upper quadrant, improve tenderness over McBurney's point. - Neurologic Neurologic: Present: CNII-XII intact - Psychiatric Psychiatric: Present: A&O x's 3, appropriate affect, intact judgment & insight - Labs CBC & Chem 7: 03/09/22 06:00 03/09/22 06:00 Labs: Abnormal Lab Results - Last 24 Hours (Table) 03/09/22 03/09/22 Range/Units 06:00 06:00 WBC 12.42 H (4.50-10.00) X 10*3/uL Hgb 12.2 L (13.0-17.0) g/dL Hct 36.3 L (39.6-50.0) % Neutrophils # 10.69 H (1.80-7.70) X 10*3/uL Lymphocytes # 0.77 L (0.90-5.00) X 10*3/uL Anion Gap 9.40 L (10.00-18.00) mmol/L BUN 6.4 L (9.0-27.0) mg/dL BUN/Creatinine Ratio 8.37 L (12.00-20.00) Ratio Glucose 129 H (70-110) mg/dL Calcium 8.4 L (8.7-10.3) mg/dL AST 8 L (14-35) U/L Total Protein 5.4 L (6.2-8.2) g/dL Albumin 3.5 L (3.8-4.9) g/dL Microbiology - Last 24 Hours (Table) 03/08/22 03:45 Blood Culture Gram Stain - Preliminary Blood 03/08/22 03:45 Blood Culture - Final Blood 03/08/22 00:05 Gram Stain - Preliminary Peritoneal Fluid Body Fluid Culture - Preliminary Pseudomonas spec 03/08/22 04:00 Blood Culture - Preliminary Blood No Growth after 24 hours 03/08/22 00:05 Anaerobic Culture - Preliminary Abdominal Fluid Assessment and Plan Assessment: POD#1 laparoscopic appendectomy with washout and drain placement for acute appendicitis with gangrene and perforation. No evidence of sepsis. Pseudomonas on preliminary culture results from intra-abdominal fluid, full speciation and sensitivity pending. Expected degree of postoperative ileus given rupture, showing slow improvement today. Plan: Antibiotics adjusted from Rocephin and Flagyl to Zosyn for coverage of Pseudomonas. IV fluids transitioned to maintenance. Continue with clear liquids as tolerated, ambulate 3 times daily and as needed. Maintain drain to suction which will help with the leakage from around the site. I anticipate likely a five-day total inpatient stay given his present pace. Time with Patient: Greater than 30
[2022-03-09] MEDS: D5-0.45% NACL WITH KCL 20MEQ/L 1,000 ML IV SCH (14:33)
[2022-03-09] MEDS: ACETAMINOPHEN TAB 325 MG TAB PO PRN (14:37)
[2022-03-09] MEDS: PIPERACILLIN-TAZOBACTAM 3.375 GM in SODIUM CHLORIDE 0.9% 100 ML IVPB SCH (15:58)
[2022-03-10] MEDS: PIPERACILLIN-TAZOBACTAM 3.375 GM in SODIUM CHLORIDE 0.9% 100 ML IVPB SCH ×4 (00:15→23:27)
[2022-03-10] MEDS: KETOROLAC 15 MG/ML 1 ML VIAL IVP PRN (00:15)
--- NOTE | 2022-03-10 02:44 | P.PN ---
Subjective Progress Note Date: 03/09/22 Patient is a 26-year-old male without significant past medical history presents to ER with complaints of abdominal pain started on 03/23/2022. Pain initially at the umbilicus region and progressed to right lower quadrant of the abdomen. Associate with nausea and vomiting and unable to tolerate oral diet. No recent illnesses. No fever no chills. No diarrhea. Presented to ER due to worsening symptoms. No complaints of chest pain or shortness of breath. No cough or sputum production. CT of the abdomen pelvis showed markedly dilated appendix with appendicoliths. Mild free fluid and consistent with acute appendicitis. Rupture is possible. Mildly dilated loops of small bowel in the pelvis likely due to ileus. KUB x-ray showed possible large appendicolith. No acute bowel gas pattern. Laboratory data showed WBC 25.0 hemoglobin 14.4 and platelets 155 BUN 9 creatinine 0.79, blood sugar is 111 and total bilirubin level was 2.6 Liver enzymes are not elevated Lipase 42 Urinalysis showed 2+ ketones. No evidence of infection. Patient was seen by General surgery and was taken to the OR last night. Status post laparoscopic appendectomy and drain placement. Patient was found to have acute appendicitis with diffuse peritonitis, gangrene and rupture. 03/09/2022 Patient is currently resting in the bed. Awake alert and oriented. Complains of nausea this morning. Able to pass flatus x1. Abdominal pain is better. No complaints of chest pain or shortness of breath. No cough or sputum production. No headache or dizziness or lightheadedness. Laboratory showed leukocytosis improving with WBC count 12.4. BUN 6.4 and creatinine 0.8 sodium 140 potassium 3.7 Patient is being current antibiotics changed to Zosyn and continued on IV hydration with D5 half-normal saline with KCl. Blood cultures growing Pseudomonas. Abdominal fluid cultures showing Pseudomonas as well. Consider ID evaluation. Current medications reviewed. Objective - Vital Signs Vital signs: Vital Signs Temp 98.2 F 03/09/22 13:49 Pulse 72 03/09/22 13:49 Resp 14 03/09/22 13:49 BP 135/79 03/09/22 13:49 Pulse Ox 93 L 03/09/22 13:49 FiO2 Intake & Output 03/08/22 03/09/22 03/09/22 18:59 06:59 18:59 Intake Total 820 868 Output Total 50 72 230 Balance 770 -72 638 Intake: Intake, IV Titration 750 Amount D5-0.45% NaCl with KCl 150 20Meq/l 1,000 ml @ 75 mls /hr IV .[id number] [facility] Rx#: [id number] Piperacillin-Tazobactam 3 200 .375 gm In Sodium Chloride 0.9% 100 ml @ 25 mls/hr IVPB Q8HR [facility] Rx# :[id number] Sodium Chloride 0.9% 1, 400 000 ml @ 75 mls/hr IV . [id number] [facility] Rx#:[id number] Oral 820 118 Output: Drainage 50 70 230 Left Lower Abdomen 50 70 230 Emesis 2 Other: Voiding Method Toilet # Voids 1 2 - Exam PHYSICAL EXAMINATION: Patient is lying in the bed comfortably, no acute distress, awake alert and oriented.. HEENT: Normocephalic. Neck is supple. Pupils reactive. Nostrils clear. Oral cavity is moist. Neck reveals no JVD, carotid bruits, or thyromegaly. CHEST EXAMINATION: Trachea is central. Symmetrical expansion. Lung marroquin clear to auscultation and percussion. CARDIAC: Normal S1, S2 with no gallops. No murmurs ABDOMEN: Soft. Bowel sounds sluggish. Tenderness of the surgical incision sites.. No organomegaly. No abdominal bruits. Extremities: reveal no edema. No clubbing or cyanosis Neurologically awake, alert, oriented x3 with well-coordinated movements. No focal deficits noted Skin: No rash or skin lesions. Psychiatric: Coperative. Nonsuicidal, Musculoskeletal: No joint swelling or deformity. Normal range of motion. - Labs CBC & Chem 7: 03/09/22 06:00 03/09/22 06:00 Labs: Abnormal Lab Results - Last 24 Hours (Table) 03/09/22 03/09/22 Range/Units 06:00 06:00 WBC 12.42 H (4.50-10.00) X 10*3/uL Hgb 12.2 L (13.0-17.0) g/dL Hct 36.3 L (39.6-50.0) % Neutrophils # 10.69 H (1.80-7.70) X 10*3/uL Lymphocytes # 0.77 L (0.90-5.00) X 10*3/uL Anion Gap 9.40 L (10.00-18.00) mmol/L BUN 6.4 L (9.0-27.0) mg/dL BUN/Creatinine Ratio 8.37 L (12.00-20.00) Ratio Glucose 129 H (70-110) mg/dL Calcium 8.4 L (8.7-10.3) mg/dL AST 8 L (14-35) U/L Total Protein 5.4 L (6.2-8.2) g/dL Albumin 3.5 L (3.8-4.9) g/dL Microbiology - Last 24 Hours (Table) 03/08/22 03:45 Blood Culture Gram Stain - Preliminary Blood 03/08/22 03:45 Blood Culture - Final Blood 03/08/22 00:05 Gram Stain - Preliminary Peritoneal Fluid Body Fluid Culture - Preliminary Pseudomonas spec 03/08/22 04:00 Blood Culture - Preliminary Blood No Growth after 24 hours Assessment and Plan Assessment: Acute gangrenous appendicitis with ruptured and diffuse peritonitis. Status post laparoscopic appendectomy. Postoperative day 1 Sepsis secondary to diffuse peritonitis and gangrenous appendix Pseudomonas bacteremiaWith abdominal fluid cultures also growing Pseudomonas.. Repeat blood cultures. Ileus GI and DVT prophylaxis patient is currently on heparin subcu Plan: Patient will be continued on IV hydration will be continued on IV hydration and broad-spectrum antibiotics Changed to Zosyn.. Follow-up final peritoneal fluid culture report. Continue with incentive spirometry and pain management and bowel regimen. Will follow closely and further recommendations based on the clinical course. Time with Patient: Greater than 30
[2022-03-10] MEDS: D5-0.45% NACL WITH KCL 20MEQ/L 1,000 ML IV SCH ×2 (05:40→17:33)
[2022-03-10] MEDS: HEPARIN SODIUM,PORCINE/PF 5,000 UNIT/0.5 ML SYRINGE SQ SCH ×3 (09:13→23:21)
[2022-03-10 11:36] LABS: Basophils % (A) 0.3 %; Eosinophils # (A) 0.04 X 10*3/uL (0.04-0.35); Eosinophils % (A) 0.4 %; HCT 40.2 % (39.6-50.0); HGB 13.6 g/dL (13.0-17.0); Lymphocytes % (A) 11.6 %; MCH 27.5 pg (27.0-32.0); MCHC 33.8 g/dL (32.0-37.0); MCV 81.4 fL (80.0-97.0); Mean Platelet Volume 11.8 fL (9.5-12.2); Monocytes # (A) 0.89 X 10*3/uL (0.20-1.00); Monocytes % (A) 8.6 %; Neutrophils # (A) 8.18 X 10*3/uL (1.80-7.70); Neutrophils % (A) 78.7 %; Platelet Count 181 X 10*3/uL (140-440); RBC 4.94 X 10*6/uL (4.40-5.60); RDW 13.2 % (11.5-14.5); WBC 10.38 X 10*3/uL (4.50-10.00)
[2022-03-10 11:37] LABS: Basophils # (A) 0.03 X 10*3/uL (0.00-0.10); Immature Grans, Automated 0.4 %; NRBC Per 100 WBC 0 /100 WBCS (0.0-0.0)
[2022-03-10 11:39] LABS: African American GFR (CKD) 148.7 (60.0-200.0); Albumin 3.5 g/dL (3.8-4.9); Albumin/Globulin Ratio 1.9 (1.60-3.17); Anion Gap 9.8 mmol/L (10.00-18.00); BUN/Creat Ratio 5.89 Ratio (12.00-20.00); Blood Urea Nitrogen 4.4 mg/dL (9.0-27.0); Calcium 8.6 mg/dL (8.7-10.3); Carbon Dioxide 22.5 mmol/L (20.0-27.5); Globulin 1.8 g/dL (1.6-3.3); Non-African American GFR(CKD) 128.3 (60.0-200.0); Potassium 3.6 mmol/L (3.5-5.5); Total Bilirubin 0.5 mg/dL (0.30-1.20); Total Protein 5.3 g/dL (6.2-8.2)
[2022-03-10] MEDS ORDERED: HYDROcodone/APAP 5-325MG 1 EACH TAB PO PRN (16:41)
[2022-03-10] MEDS ORDERED: MORPHINE SULFATE 2 MG/ML SYRINGE IVP PRN (16:41)
--- NOTE | 2022-03-10 16:47 | P.PN ---
Subjective Progress Note Date: 03/10/22 Patient seen and examined at bedside with mother at bedside. States abdominal pain is currently well controlled. According to the mother, patient did have 2 emesis episodes over the last 24 hours. He states that he did pass flatus but has also been burping. He does feel bloated. No bowel movement as of yet. KEN drain with greater than 300 cc of output overnight that is serosanguineous. He has ambulated. Objective - Vital Signs Vital signs: Vital Signs Temp 98.7 F 03/10/22 07:00 Pulse 86 03/10/22 07:00 Resp 18 03/10/22 07:00 BP 126/82 03/10/22 07:00 Pulse Ox 97 03/10/22 07:00 FiO2 Intake & Output 03/09/22 03/10/22 03/10/22 18:59 06:59 18:59 Intake Total 986 Output Total 230 397 80 Balance 756 -397 -80 Intake: Intake, IV Titration 750 Amount D5-0.45% NaCl with KCl 150 20Meq/l 1,000 ml @ 75 mls /hr IV .[id number] [facility] Rx#: [id number] Piperacillin-Tazobactam 3 200 .375 gm In Sodium Chloride 0.9% 100 ml @ 25 mls/hr IVPB Q8HR [facility] Rx# :[id number] Sodium Chloride 0.9% 1, 400 000 ml @ 75 mls/hr IV . [id number] [facility] Rx#:[id number] Oral 236 Output: Drainage 230 395 80 Left Lower Abdomen 230 395 80 Emesis 2 Other: Voiding Method Toilet # Voids 2 1 - Constitutional General appearance: Present: cooperative, no acute distress - Gastrointestinal Gastrointestinal Comment(s): Soft, incisional tenderness, mild distention, no rebound, no guarding, KEN drain in place with serosanguineous output - Labs CBC & Chem 7: 03/10/22 06:49 03/10/22 06:49 Labs: Abnormal Lab Results - Last 24 Hours (Table) 03/10/22 03/10/22 Range/Units 06:49 06:49 WBC 10.38 H (4.50-10.00) X 10*3/uL Neutrophils # 8.18 H (1.80-7.70) X 10*3/uL Anion Gap 9.80 L (10.00-18.00) mmol/L BUN 4.4 L (9.0-27.0) mg/dL BUN/Creatinine Ratio 5.89 L (12.00-20.00) Ratio Glucose 126 H (70-110) mg/dL Calcium 8.6 L (8.7-10.3) mg/dL AST 8 L (14-35) U/L Total Protein 5.3 L (6.2-8.2) g/dL Albumin 3.5 L (3.8-4.9) g/dL Microbiology - Last 24 Hours (Table) 03/08/22 03:45 Blood Culture Gram Stain - Preliminary Blood Blood Culture - Preliminary Pseudomonas aeruginosa 03/08/22 00:05 Gram Stain - Preliminary Peritoneal Fluid Body Fluid Culture - Preliminary Pseudomonas aeruginosa Gram Neg Bacilli 03/08/22 04:00 Blood Culture - Preliminary Blood No Growth after 48 hours Assessment and Plan Plan: Postoperative day #2, laparoscopic appendectomy for perforated appendicitis. Patient is noted to have positive blood cultures and positive intra-abdominal fluid cultures with Pseudomonas. He has been treated with Zosyn as his IV antibiotic. Patient did have emesis episodes and is likely developing an ileus, that is expected after his clinical situation. We will continue to monitor and I did recommend ambulation. At this time, patient states he is feeling better with no nausea. We will avoid nasogastric tube for now. He is aware that he may require this. KEN drain with 300 cc serosanguineous output overnight. Continue KEN drain and continue to monitor output. Patient is progressing slowly.
[2022-03-10] MEDS: PANTOPRAZOLE 40 MG TABLET PO SCH (16:50)
[2022-03-11] MEDS: D5-0.45% NACL WITH KCL 20MEQ/L 1,000 ML IV SCH ×2 (05:54→21:23)
[2022-03-11] MEDS: PANTOPRAZOLE 40 MG TABLET PO SCH (08:51)
[2022-03-11] MEDS: HEPARIN SODIUM,PORCINE/PF 5,000 UNIT/0.5 ML SYRINGE SQ SCH ×2 (08:51→16:15)
[2022-03-11 08:56] LABS: Basophils # (A) 0.06 X 10*3/uL (0.00-0.10); Basophils % (A) 0.6 %; Eosinophils # (A) 0.13 X 10*3/uL (0.04-0.35); Eosinophils % (A) 1.3 %; HCT 38.9 % (39.6-50.0); HGB 13.2 g/dL (13.0-17.0); Immature Grans, Automated 0.6 %; Lymphocytes # (A) 1.96 X 10*3/uL (0.90-5.00); Lymphocytes % (A) 20.1 %; MCH 27.4 pg (27.0-32.0); MCHC 33.9 g/dL (32.0-37.0); MCV 80.7 fL (80.0-97.0); Mean Platelet Volume 11.1 fL (9.5-12.2); Monocytes # (A) 0.87 X 10*3/uL (0.20-1.00); Monocytes % (A) 8.9 %; NRBC Per 100 WBC 0 /100 WBCS (0.0-0.0); Neutrophils # (A) 6.67 X 10*3/uL (1.80-7.70); Neutrophils % (A) 68.5 %; Platelet Count 204 X 10*3/uL (140-440); RBC 4.82 X 10*6/uL (4.40-5.60); RDW 13.2 % (11.5-14.5); WBC 9.75 X 10*3/uL (4.50-10.00)
[2022-03-11] MEDS: PIPERACILLIN-TAZOBACTAM 3.375 GM in SODIUM CHLORIDE 0.9% 100 ML IVPB SCH ×2 (09:00→16:15)
--- NOTE | 2022-03-11 09:32 | PN ---
PROGRESS NOTE HISTORY OF PRESENT ILLNESS: This is a 26-year-old gentleman who was admitted after seen for acute gangrenous appendicitis and diffuse peritonitis and rupture, is being closely monitored. No chest pain, no palpitations, no fever. PHYSICAL EXAMINATION: VITAL SIGNS: Pulse is 86, blood pressure ntd, respirations 18. CHEST: Clear to auscultation. ABDOMEN: Soft, status post NERVOUS SYSTEM: No focal deficits. LABS: Blood culture is Pseudomonas aeruginosa, WBC 10.38. ASSESSMENT: 1. Acute gangrenous appendicitis, maintenance sepsis, status post laparoscopic appendectomy. 2. Pseudomonas aeruginosa from the blood. 3. Ileus. 4. Increased WBC. 5. History of autism and Asperger's syndrome. RECOMMENDATIONS: This 26-year-old gentleman presented with multiple medical issues, we will monitor the patient closely. Recommended to continue the antibiotics. DVT prophylaxis. Closely follow with surgery, otherwise repeat labs and also repeat culture to ensure stability. Further recommendations to follow. MMKIMBERLYL / IJN: [id number] / MTDRegina
[2022-03-11 11:25] LABS: African American GFR (CKD) 146.5 (60.0-200.0); Albumin 3.2 g/dL (3.8-4.9); Albumin/Globulin Ratio 1.84 (1.60-3.17); Anion Gap 8.7 mmol/L (10.00-18.00); BUN/Creat Ratio 4.29 Ratio (12.00-20.00); Blood Urea Nitrogen 3.3 mg/dL (9.0-27.0); Calcium 8.6 mg/dL (8.7-10.3); Globulin 1.7 g/dL (1.6-3.3); Non-African American GFR(CKD) 126.4 (60.0-200.0); Potassium 3.9 mmol/L (3.5-5.5); Total Bilirubin 0.5 mg/dL (0.30-1.20)
--- NOTE | 2022-03-11 12:21 | CDI ---
Documentation Clarification Form Date: 03/11/2022 12:05:12 PM From: Lynne Tyler RN CCDS Admit Date: 03/10/2022 11:24:00 AM Patient Name: Nabor Butt Visit Number: [id number] Discharge Date: ATTENTION: The Clinical Documentation Specialists (CDI) and [facility] Coding Staff appreciate your assistance in clarifying documentation. Please respond to the clarification below the line at the bottom and electronically sign. The CDI & [facility] Coding staff will review the response and follow-up if needed. Please note: Queries are made part of the Legal Health Record. If you have any questions, please contact the author of this message via ITS. Dr. Musa Hurd The patient presented with the following clinical indicators. Additional clarification regarding the etiology/cause of the clinical indicators is requested. History/Risk Factors: 26-year-old male presents to the ED with right lower quadrant abdominal pain with nausea and vomiting. Medical History: Autism Aspergers syndrome. Clinical Indicators: WBC: 03/07 25.0 Neutrophils: 03/07 22.5 Blood cultures: 03/08 Pseudomonas aeruginosa Peritoneal Fluid culture: 03/08 Pseudomonas aeruginosa Escherichia coli Vitals signs: 03/07 B/P 128/84; HR 109; Temp 99.4F Temporal; SpO2 96% room air Surgical note: 03/08 & 03/09 No evidence of sepsis. Medicine Consult and notes 03/08 02/28 Sepsis secondary to diffuse peritonitis and gangrenous appendix and rupture. Pseudomonas bacteremia with abdominal fluid cultures also growing Pseudomonas. Treatment: Laparoscopic appendectomy with drain placement. 03/07 Acetaminophen IVPB x 1 Medicine Consult: See above. Antibiotics: 03/07 Ceftriaxone IVPB x 1; 03/08 03/09 Ceftriaxone IVPB Q24HR; 03/07 Flagyl IVPB x 1; 03/08 03/09 Flagyl IVPB; 03/09 Zosyn IVPB Q8HR IV Bolus: 0.9NS 1L bolus In your professional opinion, please clarify if these findings signify one of the following conditions: [x ] Sepsis POA [ ] Sepsis ruled out [ ] Other, please specify [ ] Unable to determine SIRS Criteria: 2 or more of the following may indicate SIRS -Temperature < 96.8F (36C) or > 101.0F (38.3C) -Heart Rate > 90 bpm -Respiratory Rate > 20 breaths/min or PaCO2 < 32 mmHg -White Blood Cell Count > 12,000 or < 4,000 cells/mm3 or > 10% bands (Template Last Reviewed: June 2020) MTDD
--- NOTE | 2022-03-11 20:02 | P.PN ---
Subjective Progress Note Date: 03/11/22 Patient seen and exmained at bedside. Pain well controlled. States he had another episode of emesis this morning. Minimal flatus. KEN with serosanguinous output decreasing in volume. Objective - Vital Signs Vital signs: Vital Signs Temp 98.4 F 03/11/22 15:00 Pulse 71 03/11/22 15:00 Resp 18 03/11/22 15:00 BP 120/77 03/11/22 15:00 Pulse Ox 97 03/11/22 15:00 FiO2 Intake & Output 03/11/22 03/11/22 03/12/22 06:59 18:59 06:59 Intake Total 240 Output Total 150 130 Balance -150 110 Intake: Oral 240 Output: Drainage 150 130 Left Lower Abdomen 150 130 Other: Voiding Method Toilet # Voids 2 - Constitutional General appearance: Present: cooperative, no acute distress - Gastrointestinal Gastrointestinal Comment(s): soft, nontender, mild distention, no rebound or guarding, incision sites healing well with darlene in place, KEN in place - Labs CBC & Chem 7: 03/11/22 05:43 03/11/22 05:43 Labs: Abnormal Lab Results - Last 24 Hours (Table) 03/11/22 03/11/22 Range/Units 05:43 05:43 Hct 38.9 L (39.6-50.0) % Immature Gran # 0.06 H (0.00-0.04) X 10*3/uL Anion Gap 8.70 L (10.00-18.00) mmol/L BUN 3.3 L (9.0-27.0) mg/dL BUN/Creatinine Ratio 4.29 L (12.00-20.00) Ratio Glucose 120 H (70-110) mg/dL Calcium 8.6 L (8.7-10.3) mg/dL AST 40 H (14-35) U/L Total Protein 5.0 L (6.2-8.2) g/dL Albumin 3.2 L (3.8-4.9) g/dL Microbiology - Last 24 Hours (Table) 03/10/22 16:33 Blood Culture - Preliminary Blood No Growth after 24 hours 03/08/22 00:05 Anaerobic Culture - Final Abdominal Fluid Anaerobic Gm Negative Bacilli Anaerobic Gram Positive Cocci 03/08/22 03:45 Blood Culture Gram Stain - Final Blood Blood Culture - Final Pseudomonas aeruginosa 03/08/22 00:05 Gram Stain - Final Peritoneal Fluid Body Fluid Culture - Final Pseudomonas aeruginosa Escherichia coli 03/10/22 06:49 Blood Culture - Preliminary Blood No Growth after 24 hours 03/08/22 04:00 Blood Culture - Preliminary Blood No Growth after 72 hours Assessment and Plan Plan: Postop Day #3, Lap Appendectomy for perforated appendicitis. Patient's mother was at bedside and I had a very long discussion with her about the patient's case. She did state that with the patient's Asperger's Syndrome, he cannot tolerate a significant amount of sugar or food coloring as it begins to have mental effects on him like hallucinations and hearing voices. She states that this did occur briefly last night and she believes it to be from increased sugar intake from his clear liquid diet as this has been a cause for these symptoms in the past. The patient does have an expected ileus and has had one additional vomiting episode this morning. Both he and his mother are reluctant on nasogastric tube placement. As the patient has had minimal flatus, it is reasonable to avoid NGT at this time. Based on his history with sugary diet and food coloring causing symptoms, the patient's mother is requesting to bring in cashew milk and oat milk for her son as he tolerates this liquid diet better. I recommended sips of these types of liquids and sips of a full liquid diet that would have less sugar. They are aware that the ileus will take some time to resolve and the aptient should continue with ambulation frequently. Serous drainage from KEN is decreasing in volume. WBCs have returned to normal. We will continue IV abx at this time. Patient is progressing slowly.
[2022-03-12] MEDS: HEPARIN SODIUM,PORCINE/PF 5,000 UNIT/0.5 ML SYRINGE SQ SCH ×4 (00:11→21:08)
[2022-03-12] MEDS: PIPERACILLIN-TAZOBACTAM 3.375 GM in SODIUM CHLORIDE 0.9% 100 ML IVPB SCH ×4 (00:12→23:29)
[2022-03-12 08:58] LABS: Basophils # (A) 0.03 X 10*3/uL (0.00-0.10); Basophils % (A) 0.3 %; Eosinophils # (A) 0.25 X 10*3/uL (0.04-0.35); Eosinophils % (A) 2.8 %; HCT 36.6 % (39.6-50.0); HGB 12.4 g/dL (13.0-17.0); Immature Grans, Automated 0.9 %; Lymphocytes # (A) 2.61 X 10*3/uL (0.90-5.00); MCH 27.1 pg (27.0-32.0); MCHC 33.9 g/dL (32.0-37.0); MCV 79.9 fL (80.0-97.0); Mean Platelet Volume 10.5 fL (9.5-12.2); Monocytes # (A) 0.98 X 10*3/uL (0.20-1.00); Monocytes % (A) 10.9 %; NRBC Per 100 WBC 0 /100 WBCS (0.0-0.0); Neutrophils # (A) 5.06 X 10*3/uL (1.80-7.70); Neutrophils % (A) 56.1 %; Platelet Count 198 X 10*3/uL (140-440); RBC 4.58 X 10*6/uL (4.40-5.60); WBC 9.01 X 10*3/uL (4.50-10.00)
[2022-03-12] MEDS: PANTOPRAZOLE 40 MG TABLET PO SCH (09:15)
--- NOTE | 2022-03-12 12:24 | PN ---
PROGRESS NOTE DATE OF SERVICE: 03/11/2022 SUBJECTIVE: This 26-year-old gentleman, admitted with acute gangrenous appendicitis no chest pain. No palpitations. No fever. White count is 9.75 today. Surgery is following the patient closely. OBJECTIVE: VITAL SIGNS: Pulse 71, blood pressure 120/77, respirations 18. CHEST: Clear to auscultation. CARDIOVASCULAR: S1, S2. ABDOMEN: Soft, status post surgery. NERVOUS SYSTEM: Nonfocal. LABORATORY DATA: Reviewed. ASSESSMENT: 1. Acute gangrenous appendicitis with sepsis and peritonitis, status post laparoscopic appendectomy. 2. Pseudomonas aeruginosa from the blood. 3. Ileus. 4. Increased WBC. 5. History of autism and Asperger's syndrome. RECOMMENDATIONS: I recommend to continue current and symptomatic treatment. Otherwise, the most recent cultures are negative. Continue with antibiotics. Closely follow with Surgery. Further recommendations to follow. MMODL / IJN: [id number] / JENY
[2022-03-12] MEDS: D5-0.45% NACL WITH KCL 20MEQ/L 1,000 ML IV SCH ×2 (12:59→21:06)
--- NOTE | 2022-03-12 13:49 | P.PN ---
Subjective Progress Note Date: 03/12/22 Patient seen and examined at bedside. He states he is feeling much better today than he has the past few days. He is tolerating full liquid diet and denies any emesis episodes. He states he is having some flatulence, however it is minimal. No additional complaints at this time. Objective - Vital Signs Vital signs: Vital Signs Temp 98.7 F 03/12/22 07:00 Pulse 91 03/12/22 07:00 Resp 18 03/12/22 08:00 BP 120/74 03/12/22 07:00 Pulse Ox 96 03/12/22 07:00 FiO2 Intake & Output 03/11/22 03/12/22 03/12/22 18:59 06:59 18:59 Intake Total 240 118 Output Total 130 60 Balance 110 -60 118 Intake: Oral 240 118 Output: Drainage 130 60 Left Lower Abdomen 130 60 Other: Voiding Method Toilet Toilet # Voids 2 - Constitutional General appearance: Present: cooperative, no acute distress - Gastrointestinal Gastrointestinal Comment(s): Soft, nontender, mild distention, no rebound, no guarding, KEN drain in place., Incision sites are clean, dry and intact with darlene in - Psychiatric Psychiatric: Present: A&O x's 3 - Labs CBC & Chem 7: 03/12/22 05:49 03/11/22 05:43 Labs: Abnormal Lab Results - Last 24 Hours (Table) 03/12/22 Range/Units 05:49 Hgb 12.4 L (13.0-17.0) g/dL Hct 36.6 L (39.6-50.0) % MCV 79.9 L (80.0-97.0) fL Immature Gran # 0.08 H (0.00-0.04) X 10*3/uL Microbiology - Last 24 Hours (Table) 03/10/22 06:49 Blood Culture - Preliminary Blood No Growth after 48 hours 03/08/22 04:00 Blood Culture - Preliminary Blood No Growth after 96 hours 03/10/22 16:33 Blood Culture - Preliminary Blood No Growth after 24 hours 03/08/22 00:05 Anaerobic Culture - Final Abdominal Fluid Anaerobic Gm Negative Bacilli Anaerobic Gram Positive Cocci 03/08/22 03:45 Blood Culture Gram Stain - Final Blood Blood Culture - Final Pseudomonas aeruginosa Assessment and Plan Plan: Postoperative day #4, laparoscopic appendectomy for ruptured appendicitis. Patient appears to be improving and is in good spirits today. He is tolerating full liquid diet without any further emesis episodes. He states he has minimal amount of flatulence and ileus appears to be slightly resolving.Output from KEN drain has greatly decreased and is noted to be serosanguineous at this time. We will continue the patient on full liquid diet and continue IV antibiotics at this time. Repeat blood cultures are pending. He is progressing slowly. We will await further bowel function prior to advancing diet.
[2022-03-13] MEDS: PANTOPRAZOLE 40 MG TABLET PO SCH (08:35)
[2022-03-13] MEDS: HEPARIN SODIUM,PORCINE/PF 5,000 UNIT/0.5 ML SYRINGE SQ SCH ×3 (08:35→23:05)
[2022-03-13] MEDS: PIPERACILLIN-TAZOBACTAM 3.375 GM in SODIUM CHLORIDE 0.9% 100 ML IVPB SCH ×3 (08:35→23:05)
--- NOTE | 2022-03-13 15:42 | P.PN ---
Subjective Progress Note Date: 03/13/22 Patient seen and examined at bedside. Is in very good spirits with family at bedside. Had a bowel movement yesterday. Continues to have flatus. Denies nausea or vomiting. Tolerating diet. KEN drain with continuous decreased output of serous quality. Objective - Vital Signs Vital signs: Vital Signs Temp 98.1 F 03/13/22 13:35 Pulse 64 03/13/22 13:35 Resp 17 03/13/22 13:35 BP 115/74 03/13/22 13:35 Pulse Ox 98 03/13/22 13:35 FiO2 Intake & Output 03/12/22 03/13/22 03/13/22 18:59 06:59 18:59 Intake Total 709 240 Output Total 60 40 50 Balance 649 -40 190 Intake: Oral 709 240 Output: Drainage 60 40 50 Left Lower Abdomen 60 40 50 Other: Voiding Method Toilet Toilet Toilet # Voids 3 2 # Bowel Movements 1 - Constitutional General appearance: Present: cooperative - Gastrointestinal Gastrointestinal Comment(s): Soft, nontender, nondistended, no rebound, no guarding, incision sites are clean, dry and intact with darlene in place, KEN drain in place - Psychiatric Psychiatric: Present: A&O x's 3 - Labs CBC & Chem 7: 03/12/22 05:49 03/11/22 05:43 Labs: Microbiology - Last 24 Hours (Table) 03/10/22 06:49 Blood Culture - Preliminary Blood No Growth after 72 hours 03/08/22 04:00 Blood Culture - Preliminary Blood No Growth after 120 hours 03/10/22 16:33 Blood Culture - Preliminary Blood No Growth after 48 hours Assessment and Plan Plan: Postoperative day #5, laparoscopic appendectomy for ruptured appendicitis. Patient continues to improve. He is in good spirits today and had a bowel movement. We will advance to regular diet. Likely discharge in 24 hours. I did explain to the patient's family that we will remove KEN tomorrow, prior to discharge. Darlene would need to remain in place and will be discontinued as an outpatient. Patient's mother is agreeable with this plan. He will likely be discharged with oral antibiotics as he has not had any growth from repeat blood cultures and it appears that the bacteremia has resolved Continue to increase activity and ambulate. All questions were answered at bedside. As the patient has a primary care doctor in [place], patient's mother is requesting chart or access to portal for medical data for his outpatient care.
[2022-03-13] MEDS: ACETAMINOPHEN TAB 325 MG TAB PO PRN (16:20)
[2022-03-13] MEDS: D5-0.45% NACL WITH KCL 20MEQ/L 1,000 ML IV SCH (17:54)
--- NOTE | 2022-03-13 21:34 | PN ---
PROGRESS NOTE DATE OF SERVICE: 03/12/2022 SUBJECTIVE: This is a 26-year-old gentleman who was admitted with acute gangrenous appendicitis and the patient is on IV antibiotics. No chest pain. No palpitations. No fever. White count is 9.01. OBJECTIVE: GENERAL: Alert and oriented x4. VITAL SIGNS: Pulse 68, blood pressure 120/70, respirations 18. CHEST: Clear to auscultation. CARDIOVASCULAR: S1, S2. ABDOMEN: Soft. NERVOUS SYSTEM: No focal deficits. LABS: Noted. ASSESSMENT: 1. Acute gangrenous appendicitis, sepsis, and peritonitis, status post laparoscopic appendectomy. 2. Pseudomonas aeruginosa from the blood. 3. Ileus. 4. Increased WBC. 5. History of autism and Asperger's syndrome. RECOMMENDATIONS: Recommend to continue the current medications and symptomatic treatment. Continue with IV antibiotics. Most recent blood cultures negative. Seems like the patient is improving. Closely follow with Surgery. Prognosis guarded. Further recommendations to follow. MMODL / IJN: [id number] /
[2022-03-14 04:02] VITALS: RESP 16
[2022-03-14] MEDS: HEPARIN SODIUM,PORCINE/PF 5,000 UNIT/0.5 ML SYRINGE SQ SCH (07:45)
[2022-03-14] MEDS: PIPERACILLIN-TAZOBACTAM 3.375 GM in SODIUM CHLORIDE 0.9% 100 ML IVPB SCH (07:45)
[2022-03-14] MEDS: PANTOPRAZOLE 40 MG TABLET PO SCH (07:45)
[2022-03-14 08:43] VITALS: BP 113/74; PULSE 73; TEMP 98.1
--- NOTE | 2022-03-14 12:50 | P.DS ---
Providers Date of admission: 03/10/22 11:24 Attending physician: Reji Mcclellan DO Consults: 03/07/22 22:02 Consult Physician Routine Consulting Provider: Geovanna Atkinson Consult Reason/Comments: medical management Do you want consulting provider notified?: Yes 03/07/22 22:30 Consult Physician Routine Consulting Provider: [facility] Consult Reason/Comments: [facility] Do you want consulting provider notified?: Yes Primary care physician: Physician Nonstaff Hospital Course: 26-year-old male presented to the emergency room with complaints of abdominal pain. He was found to have appendicitis and was taken for laparoscopic appendectomy. He was found to have a ruptured appendix. He was admitted to the medical surgical floor after surgery with KEN drain in place. Throughout his admission he did improve he was found to have bacteremia on admission that resolved based on repeat blood culture showing no growth after 96 hours. His diet was advanced as he began having bowel function. Pain level has been absent for the last few days. He has not required any narcotic pain medication. He'll be discharged on oral antibiotics. Significant amount of time was spent with him and his mother explaining the medical situation. All questions were answered. Procedures: Laparoscopic appendectomy Patient Condition at Discharge: Fair Plan - Discharge Summary New Discharge Prescriptions: New HYDROcodone/APAP 5-325MG [[place] 5-325] 1 tab PO Q6HR PRN 3 Days #12 tab PRN Reason: Pain Amoxic-Pot Clav 500-125 mg [Augmentin 500-125 mg] 1 tab PO Q12HR 7 Days #14 tab Discharge Medication List Amoxic-Pot Clav 500-125 mg [Augmentin 500-125 mg] 1 tab PO Q12HR 7 Days #14 tab 03/14/22 [Rx] HYDROcodone/APAP 5-325MG [[place] 5-325] 1 tab PO Q6HR PRN 3 Days #12 tab 03/14/22 [Rx] Follow up Appointment(s)/Referral(s): Nonstaff,Physician [Primary Care Provider] - 1-2 days Musa Hurd DO [Doctor of Osteopathic Medicine] - 1 Week Patient Instructions/Handouts: Laparoscopic Appendectomy (DC) Activity/Diet/Wound Care/Special Instructions: No lifting greater than 5 pounds Stay on soft food and take pain medication as necessary Ambulate daily Discharge Disposition: HOME SELF-CARE
--- NOTE | 2022-03-14 15:02 | P.PN ---
Subjective Progress Note Date: 03/14/22 This is a pleasant 26-year-old male who was recently admitted under surgical services and underwent appendectomy with Dr. Mcclellan surgery and is being closely monitored. Patient had acute gangrenous appendicitis and has been maintained on antibiotics. Close monitoring of white blood count and within normal limits and patient is afebrile. Patient continued with KEN drain although is being removed today prior to surgery. Patient's diet has been advanced and tolerating with no reports of nausea or vomiting. Patient reports he lives out of state and was visiting with family in [place] although currently lives in [place]. Mother at the bedside and patient will be discharged home on antibiotics and recommend close outpatient follow-up with his primary care provider once home. Patient denies chest pain or shortness of breath and is tolerating diet. Review of systems: Constitutional: No reports of fatigue, fever, or chills Cardiovascular: No reports of chest pain or palpitations Respiratory: No reports of shortness of breath or cough GI: No reports of nausea, no reports of of vomiting, reports tolerating diet and passing gas and did have bowel movement : No reports of dysuria or retention Neurovascular: No reports of generalized weakness All medications have been reviewed PHYSICAL EXAMINATION: GENERAL: The patient is alert and oriented x4, thin built young male HEENT: Pupils are round and equally reacting to light. EOMI. no scleral icterus. No conjunctival pallor. Normocephalic, atraumatic. No pharyngeal erythema. No thyromegaly. CARDIOVASCULAR: S1 and S2 muffled PULMONARY: diminished breath sounds bilaterally with no wheezing or rhonchi noted. ABDOMEN: soft. Nontender on exam. non-distended, normoactive bowel sounds. No palpable organomegaly. MUSCULOSKELETAL: No joint swelling or deformity. EXTREMITIES: No cyanosis, clubbing, or pedal edema. NEUROLOGICAL: Gross neurological examination did not reveal any focal deficits. SKIN: No rashes. Assessment: Acute gangrenous appendicitis, sepsis, and peritonitis, status post laparoscopic appendectomy, present on admission Pseudomonas aeruginosa from the blood Ileus Increased WBC, improved History of autism and Asperger's syndrome GI prophylaxis DVT prophylaxis Full code Plan: Recommend to continue with current medications and management per general surgery services. Patient is post appendectomy and is afebrile with no white count. Patient's diet has been advanced and KEN drain being removed. Patient was maintained on antibiotics and will be continued on oral Augmentin twice daily for the next 1 week. Surgery recommending close outpatient follow-up and also encourage the patient to follow-up with his primary care provider in [place] once home. Patient reports he will be going to stay with his family in [place] for a few days with follow-up with surgery as scheduled. Encouraged incentive spirometer at least 10 times every hour while awake and limiting activity until follow-up. Patient is tolerating diet and recommend continue with current recommendations per surgery. Patient is scheduled for discharge today and we will continue to follow with surgery during hospitalization. Thank you kindly for this consultation. The impression and plan of care has been dictated by Liz Villagran, nurse practitioner as directed. Dr. Demetrio MD I have performed a history and examination and MDM of this patient, discussed the same with the dictator, and agree with the dictator's assessment and plan as written ,documented as a scribe. Based on total visit time, I have performed more than 50% of the visit. Any additional findings or plans will be noted. Objective - Vital Signs Vital signs: Vital Signs Temp 98.1 F 03/14/22 08:18 Pulse 73 03/14/22 08:18 Resp 16 03/14/22 08:18 BP 113/74 03/14/22 08:18 Pulse Ox 97 03/14/22 08:18 FiO2 Intake & Output 03/13/22 03/14/22 03/14/22 18:59 06:59 18:59 Intake Total 358 831 Output Total 50 50 40 Balance 308 -50 791 Intake: Oral 358 831 Output: Drainage 50 50 40 Left Lower Abdomen 50 50 40 Other: Voiding Method Toilet Toilet Toilet # Voids 2 1 # Bowel Movements 1 - Labs CBC & Chem 7: 03/12/22 05:49 03/11/22 05:43 Labs: Microbiology - Last 24 Hours (Table) 03/10/22 06:49 Blood Culture - Preliminary Blood No Growth after 96 hours 03/08/22 04:00 Blood Culture - Final Blood No Growth after 144 hours 03/10/22 16:33 Blood Culture - Preliminary Blood No Growth after 72 hours
--- NOTE | 2022-03-14 21:02 | PN ---
PROGRESS NOTE DATE OF SERVICE: 03/13/2022 SUBJECTIVE: This is a 26-year-old gentleman, who was admitted with acute gangrenous appendicitis. He is on IV antibiotics. No chest pain. No palpitations. No fever. OBJECTIVE: VITAL SIGNS: Pulse is 64, blood pressure 115/70, respirations 17. CHEST: Clear to auscultation. ABDOMEN: Soft. Status post surgery. NERVOUS SYSTEM: Nonfocal. LABORATORY DATA: Reviewed. ASSESSMENT: 1. Acute gangrenous appendicitis with sepsis and peritonitis, status post laparoscopic appendectomy. 2. Pseudomonas aeruginosa from the blood. 3. Ileus. 4. Increased WBC. 5. History of autism and Asperger's syndrome. RECOMMENDATIONS: Recommend to continue current management and symptomatic treatment. Most recent cultures are negative. Continue the antibiotics. Closely follow with Surgery. Further recommendations to follow. MMODL / IJN: [id number] /
== END 2022-03-14 14:00 | disposition home or self-care (01) | DRG 853 ==
LOC: EC 18:47 → SUPCPDRO 18:47 → 6NMEDSUR 22:03 → OBSVTOIN 03-10 11:23 → INTOOBSV 03-10 11:23 → OBSVTOIN 03-10 11:24
PROVIDERS: ADMIT Surgery; ATTEND Surgery
PROC: 0DTJ4ZZ Resection of Appendix, Percutaneous Endoscopic Approach (ICD-10-PCS; principal; 2022-03-08)
DX: A41.52 Sepsis due to Pseudomonas (principal); K35.32 Acute appendicitis with perforation, localized peritonitis, and gangrene, without abscess; K56.7 Ileus, unspecified; F84.5 Asperger's syndrome; K56.41 Fecal impaction
CPT/HCPCS: 36415; 74018; 74177; 80053; 81003; 82150; 83690; 85025; 87040; 87070; 87075; 87077; 87186; 87205; 88304; 93005; 96365; 96368; 96375; 99285